=== PATIENT | male | born 1950 | race African-American/Black ===

== ENCOUNTER 2022-05-11 11:39 | Emergency (ER) | payer MEDICARE ==
[2022-05-11 12:49] LABS: Basophils # (Auto) 0.1 K/mm3 (0.0-0.1); Eosinophils # (Auto) 0.8 K/mm3 (0.0-0.4); Eosinophils % (Auto) 10.8 % (0.0-4.3); Hematocrit 40.5 % (35.5-45.6); Hemoglobin 13.6 gm/dl (11.8-15.2); Lymphocytes # (Auto) 1.2 K/mm3 (1.2-5.4); Lymphocytes % (Auto) 15.9 % (13.4-35.0); Mean Corpuscular HGB Conc 34 % (32-34); Mean Corpuscular Volume 93 fl (84-94); Monocytes # (Auto) 0.3 K/mm3 (0.0-0.8); Monocytes % (Auto) 4.6 % (0.0-7.3); Platelet Count 282 K/mm3 (140-440); Red Blood Count 4.34 M/mm3 (3.65-5.03)
[2022-05-11 12:57] LABS: INR 0.81 (0.87-1.13)
[2022-05-11 12:58] LABS: Partial Thromboplastin Time 30.9 Sec. (24.2-36.6); Thrombin Time 16.1 Sec. (15.1-19.6)
[2022-05-11 13:06] LABS: BUN/Creatinine Ratio 11; Blood Urea Nitrogen 23 mg/dL (9-20); Calcium 9.8 mg/dL (8.4-10.2); Hemolysis Index 7
[2022-05-11] MEDS ORDERED: hydrALAZINE 20 MG/1 ML INJ IV ONE (14:27)
--- NOTE | 2022-05-11 15:42 | Cat Scan Report ---
CT BRAIN: 05/11/2022 INDICATION / CLINICAL INFORMATION: neuro deficits <6hrs or sx present upon awakening. COMPARISON: None available. FINDINGS: BRAIN/INTRACRANIAL STRUCTURES: Unenhanced CT images of the brain were obtained. There is prominent hypoattenuation involving the brainstem, cerebellar white matter. It is unclear wh ether this is the result of acute process such as diffuse ischemia or result of an underlying lesion or chronic condition. Correlation with details of clinical circumstances would be helpful, as diffuse acute brainstem injury with an significant neurologic findings. Ventricles and sulci are prominent in size. There is extensive chronic appearing white matter hypoatt enuation present throughout the cerebral hemispheric white matter. There is no evidence of hemorrhage. There are no abnormal extra-axial fluid collection. Note is made of relative hyperdensity involving the distal vertebral arteries, which can be due to at herosclerotic change or thrombosis. The basilar artery is not visualized. EXTRACRANIAL STRUCTURES: Unremarkable. IMPRESSION: Prominent diffuse hypoattenuation involving brainstem and cerebellar white matter as described above . Correlation with clinical circumstances and consideration for follow-up vascular or MRI imaging sug gested. All CT scans at this location are performed using dose reduction to ALARA by means of automated expos ure control. Signer Name: Festus Watts MD Signed: 05/11/2022 3:38 PM Workstation Name: [id number]
[2022-05-11] MEDS ORDERED: amLODIPine 5 MG TAB PO ONE (18:04)
--- NOTE | 2022-05-11 18:22 | Emergency Department Report ---
HPI - General Chief Complaint: Weakness PUI?: No Time Seen by Provider: 05/11/22 13:52 - HPI HPI: 71-year-old male with unknown past medical history presents for evaluation of dizziness lightheadedness and complaints of unsteady gait. Patient states "I have never seen a doctor before because I am afraid they can find something wrong." He complains of 3 weeks of dizziness, bilateral vision changes in both eyes, and unsteady gait. No vision loss. No tingling numbness in his arms or legs. No nausea vomiting fevers or chills. Pain currently 0-10. Pt states he is from [facility] and has lived [place]. ED Past Medical Hx - Past Medical History Previous Medical History?: No - Surgical History Past Surgical History?: Yes Additional Surgical History: left shoulder - Family History Family history: no significant - Social History Smoking Status: Never Smoker Substance Use Type: Alcohol - Medications Home Medications: Home Medications Medication Instructions Recorded Confirmed Last Taken Type HYDROcodone/APAP 5-325 [[place] 1 each PO Q6HR PRN #15 tablet 09/01/13 Unknown Rx 5/325 mg] amLODIPine 10 mg PO DAILY 21 Days #21 tab 05/11/22 Unknown Rx carvediloL [Coreg] 12.5 mg PO BID 21 Days #42 tablet 05/11/22 Unknown Rx ED Review of Systems ROS: Stated complaint: WEAKNESS Other details as noted in HPI Comment: All other systems reviewed and negative Physical Exam - Physical Exam Vital Signs: Vital Signs 05/11/22 05/11/22 05/11/22 11:45 13:24 13:30 Temperature 98.2 F Pulse Rate 79 67 64 Respiratory 16 12 17 Rate Blood Pressure 247/139 Blood Pressure 236/149 [Right] O2 Sat by Pulse 100 99 99 Oximetry 05/11/22 05/11/22 05/11/22 13:46 14:00 14:16 Temperature Pulse Rate 63 63 62 Respiratory 18 17 16 Rate Blood Pressure 240/142 240/142 235/130 Blood Pressure [Right] O2 Sat by Pulse 99 99 100 Oximetry 05/11/22 05/11/22 05/11/22 14:30 14:46 15:00 Temperature Pulse Rate 69 79 83 Respiratory 12 13 16 Rate Blood Pressure 235/130 208/111 208/111 Blood Pressure [Right] O2 Sat by Pulse 100 99 99 Oximetry 05/11/22 15:46 Temperature Pulse Rate 82 Respiratory Rate Blood Pressure 192/105 Blood Pressure [Right] O2 Sat by Pulse Oximetry General: Gen: pt is well appearing, no acute distress HEENT: Normocephalic atraumatic pupils equally round and reactive to light extraocular muscles intact sclera anicteric Neck: Full range of motion, no midline spinal tenderness palpation, no JVD, no carotid bruits, no nuchal rigidity CVS: S1-S2 regular rate and rhythm with no gallops rubs or murmurs, chest wall nontender Pulmonary: Clear to auscultation bilaterally, no wheezes rales or rhonchi Abdomen: Soft nondistended nontender no guarding or rebound tenderness, no palpable deformities or step-offs, normal active bowel sounds, no hepatosplenomegaly, no pulsatile masses : Deferred Extremities: No cyanosis no clubbing no edema, intact distal peripheral pulses, Integumentary: Skin normal, no petechia no purpura no abscess no lacerations no evidence of trauma no evidence of infection Neuro: Patient is awake alert and oriented to person place time situation, mentating well, cranial nerves II through XII intact, no focal neurodeficits, sensation grossly tact Psych: Calm cooperative, mood affect normal ED Course Vital Signs 05/11/22 05/11/22 05/11/22 11:45 13:24 13:30 Temperature 98.2 F Pulse Rate 79 67 64 Respiratory 16 12 17 Rate Blood Pressure 247/139 Blood Pressure 236/149 [Right] O2 Sat by Pulse 100 99 99 Oximetry 05/11/22 05/11/22 05/11/22 13:46 14:00 14:16 Temperature Pulse Rate 63 63 62 Respiratory 18 17 16 Rate Blood Pressure 240/142 240/142 235/130 Blood Pressure [Right] O2 Sat by Pulse 99 99 100 Oximetry 05/11/22 05/11/22 05/11/22 14:30 14:46 15:00 Temperature Pulse Rate 69 79 83 Respiratory 12 13 16 Rate Blood Pressure 235/130 208/111 208/111 Blood Pressure [Right] O2 Sat by Pulse 100 99 99 Oximetry 05/11/22 15:46 Temperature Pulse Rate 82 Respiratory Rate Blood Pressure 192/105 Blood Pressure [Right] O2 Sat by Pulse Oximetry - Consultations Consultation #1: 09/10/22 17:27 I telephoned and spoke with the reading radiologist, Dr. Camejo. Per his verbal report, CT head findings are concerning for a brainstem mass. Infectious proces s is a lot less likely given that the patient's vitals are stable and clinically he is not obtunded or altered. He advises that the patient undergo MRI of the brain. I told him that this is not available at this time. He states at this time there is no alternative recommendations for imaging to further evaluate the pathology found on the patient's brain CT today. ED Medical Decision Making - Lab Data Result diagrams: 05/11/22 11:59 05/11/22 11:59 - EKG Data -: EKG Interpreted by Me EKG shows normal: sinus rhythm Rate: normal - EKG Data When compared to previous EKG there are: no significant change Interpretation: LVH - Radiology Data Radiology results: report reviewed - Medical Decision Making 71-year-old male presents for evaluation of dizziness lightheadedness unsteady gait and bilateral blurry vision x3 weeks. Patient hypertensive on arrival. Patient was last seen in our system in 2013 and was hypertensive with a pressure of 180/100 at that time. Serum labs reviewed. Patient has renal insufficiency but is unclear if this is acute or chronic or acute on chronic. As patient has no prior labs available for comparison. Diagnostic imaging results reviewed. I reviewed the head CT results via telephone with Dr. Camejo after he dictated the patient's CT head report. Per his verbal report, findings are concerning for possible brainstem mass. The patient was given multiple dosages of labetalol and given oral of amlodipine for blood pressure management. Although the patient's blood pressure did initially improve, he had rebound hypertension. I had an extensive discussion with the patient via the language line newspaper reporter,David newspaper reporter #[id number]. Per my extensive discussion with the patient, I am strongly recommending he be admitted to the hospital for blood pressure control as well as to further evaluate the abnormal finding on his brain CAT scan. Patient states "I know I am not well because I been having these problems for 4 years now." He is awake alert and oriented to person place time and situation and he is mentating well. Per my assessment he has decision-making capacity. The patient verbalizes understanding and the risk of leaving AGAINST MEDICAL ADVICE were discussed with him. Patient informed that risk included but were not limited to: Worsening renal function, brain mass, paralysis, permanent disability,and . Patient is able to explain these risks back to me in his own words with understanding and does not appear to be confused. His explanations appear appropriate. Nevertheless the patient is refusing admission and is requesting to leave AGAINST MEDICAL ADVICE. He was given referral information for primary care doctor. Of note the case was reviewed with Dr. Stroud, the current admitting hospitalist, and I asked him to provide recommendations concerning outpatient blood pressure management. He advised the patient be placed on amlodipine 10 mg daily and Coreg 12.5 mg by mouth every 12 hours. Patient advised to telephone her primary care doctor soon as possible for reassessment and further management. He was given strict verbal and written return precautions. Patient verbalized understanding. Patient left AGAINST MEDICAL ADVICE. Critical Care Time: No Critical care attestation.: If time is entered above; I have spent that time in minutes in the direct care of this critically ill patient, excluding procedure time. ED Disposition Clinical Impression: Abnormal brain CT, Dizziness, Uncontrolled hypertension Disposition: 07 LEFT AGAINST MEDICAL ADVICE Is pt being admited?: No Does the pt Need Aspirin: No Condition: Serious Instructions: Hypertension, Adult, Fsde-bh-Adug, Preventing Hypertension, Hypertension (ED) Additional Instructions: It is strongly recommended that you be admitted to the hospital today for further evaluation of your brain cat scanm as well as management of your blood pressure. This was very important. You have chosen to leave against medical a dvice. Telephone Dr. Clayton to schedule an immediate outpatient follow-up appointment within 1 business day. This is very important. Your doctor can help in ordering an MRI of your brain to further look at the abnormalities that are being found on your CAT scan today. Additionally your primary care doctor will refer you to a kidney doctor who will further evaluate your kidney function and help your doctor manage your blood pressure medications. You have been prescribed blood pressure medications. Please take this daily as directed. Return to the nearest emergency department as soon as possible if you develop severe or worsening pain, vomiting, inability tolerate occurs or solids, wors ening ability to walk or worsening dizziness, vision loss or other vision changes, or if any other new worrisome symptoms develop Prescriptions: amLODIPine 10 mg PO DAILY 21 Days #21 tab carvediloL [Coreg] 12.5 mg PO BID 21 Days #42 tablet Referrals: ARABELLA BENJAMINANIVAL HANNA, [LAB/CONTRACT] - [facility] (Address: [address], [place] [address] Hours: Opens 10AM Mon ) JACINTA CLAYTON MD [Staff Physician] - [facility]
[2022-05-11 18:32] VITALS: BP 188/111
--- NOTE | 2022-05-14 09:47 | Electrocardiograph Report ---
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
== END 2022-05-11 18:32 | disposition left against medical advice (07) ==
LOC: ED 11:39
DX: R42 Dizziness and giddiness (principal); I10 Essential (primary) hypertension; R93.89 Abnormal findings on diagnostic imaging of other specified body structures
CPT/HCPCS: 36415; 70450; 80048; 84484; 85025; 85610; 85670; 85730; 93005; 96374; 96375; 99284; J0360; J3490